=== PATIENT | female | born 1960 | race Caucasian/White ===

== ENCOUNTER → 2016-06-22 | Day surgery (SDC) | payer BC ==
[2016-06-20 10:00] VITALS: BMI 26.5
[~2016-06-22] MED LIST: ACETAMINOPHEN TAB 500 MG TAB PO ONE; DEXAMETHASONE SOD PHOS (MDV) 100 MG/10 ML VIAL ONE; DEXAMETHASONE SOD PHOSPHATE 10 MG/ML 1 ML VIAL IV ONE; DEXAMETHASONE SOD PHOSPHATE 4 MG/ML 1 ML VIAL IV ONE; FAMOTIDINE 20 MG/2 ML VIAL IV ONE; GLYCOPYRROLATE 0.2 MG/ML 2 ML VIAL ONE; HYDROmorphone 1 MG/ML 1 ML SYRINGE IVP PRN; LACTATED RINGERS 1,000 ML IV SCH; LIDOCAINE 1% 20 ML VIAL (10MG/ML) FOR IV START INTRADERMA PRN; LIDOCAINE 1% INJ 10MG/ML (20 ML MDV) ONE; MIDAZOLAM 2 MG/2 ML VIAL IV PRN; MIDAZOLAM 2 MG/2 ML VIAL ONE; ONDANSETRON 4 MG/2 ML VIAL IVP ONE; PROPOFOL 10 MG/ML 20 ML VIAL IV ONE; Pre Op ABX Message 1 EACH MISC MISCELLANE ONE; SCOPOLAMINE 1.5MG/72HR PATCH TRANSDERM ONE; SUCCINYLCHOLINE CHLORIDE 100 MG/5 ML SYR IV ONE; fentaNYL (PF) 50 MCG/ML 2 ML AMP ONE
[2016-06-22 10:41] VITALS: TEMP 97.9
--- NOTE | 2016-06-22 10:48 | P.OP ---
Date of Procedure: 06/22/16 Preoperative Diagnosis: Bilateral vocal cord polyps Postoperative Diagnosis: Same Procedure(s) Performed: Direct microscopic laryngoscopy with removal of bilateral vocal cord polyps Anesthesia: BRIANAA Surgeon: Keven Hernandez Estimated Blood Loss (ml): 0 Pathology: other (Polyps) Condition: stable Disposition: PACU Indications for Procedure: This patient has had persistent hoarseness she suffers from ALLERGIC disease some reflux issues and vocal strain. She's developed vocal cord polyps that have not been amenable to medical therapy therefore surgical removal was requested by the patient. All risks, benefits, and alternative therapies were discussed in detail. Consent was obtained and all questions were answered. Operative Findings: Patient has bilateral vocal cord polyps Description of Procedure: This patient was taken to the operative room and placed in the supine position. A general inhalation anesthetic was administered to the patient by mask and subsequently intubated with a cuffed endotracheal tube by the department of anesthesia with a functioning IV line in place. Patient was monitored throughout the entire case by the department of anesthesia. A Jako laryngoscope was placed into the patient's mouth with care to avoid any trauma to the lips teeth gums or tongue. Tooth guard was placed. The scope was advanced and the entire Lucia and hypopharynx was evaluated including the piriform sinus, aryepiglottic folds, true and false cords, base of tongue vallecula epiglottis etc. After complete and thorough examination was performed , this was placed on suspension on a Lewy and the vocal cords were visualized. With use of a low suction microdebrider utilizing a pill coater blade these polyps were removed bilaterally. Excellent results were obtained hemostasis was spontaneous and the patient was taken to postanesthesia recovery in excellent condition. Follow-up will be in the office in 1 week patient has 7 days of voice rest
[2016-06-22 10:51] VITALS: RESP 16
[2016-06-22 11:00] VITALS: BP 112/61; PULSE 69
== END | disposition home or self-care (01) ==
LOC: OR 08:04
PROVIDERS: ATTEND Otolaryngology
DX: J38.1 Polyp of vocal cord and larynx (principal); J37.0 Chronic laryngitis; I10 Essential (primary) hypertension; Z79.82 Long term (current) use of aspirin; Z79.899 Other long term (current) drug therapy; Z91.011 Allergy to milk products; Z91.018 Allergy to other foods; Z91.09 Other allergy status, other than to drugs and biological substances
CPT/HCPCS: 88305; 31540; J2250; J1100 ×2; J2405; J2001; J3010; J0330; J2704

== ENCOUNTER 2017-09-19 07:38 | Day surgery (SDC) | payer BC ==
[2017-09-11 16:02] VITALS: BMI 25.0
[~2017-09-19 07:38] MED LIST changes: -ACETAMINOPHEN TAB 500 MG TAB PO ONE; -DEXAMETHASONE SOD PHOS (MDV) 100 MG/10 ML VIAL ONE; -DEXAMETHASONE SOD PHOSPHATE 4 MG/ML 1 ML VIAL IV ONE; -FAMOTIDINE 20 MG/2 ML VIAL IV ONE; -GLYCOPYRROLATE 0.2 MG/ML 2 ML VIAL ONE; +HYDROmorphone 0.5 MG/0.5 ML SYRINGE IVP PRN; -HYDROmorphone 1 MG/ML 1 ML SYRINGE IVP PRN; -LACTATED RINGERS 1,000 ML IV SCH; -LIDOCAINE 1% 20 ML VIAL (10MG/ML) FOR IV START INTRADERMA PRN; -LIDOCAINE 1% INJ 10MG/ML (20 ML MDV) ONE; -MIDAZOLAM 2 MG/2 ML VIAL IV PRN; -MIDAZOLAM 2 MG/2 ML VIAL ONE; +MORPHINE SULFATE 4 MG/ML SYRINGE IV PRN; +ONDANSETRON 4 MG/2 ML VIAL IVP PRN; -PROPOFOL 10 MG/ML 20 ML VIAL IV ONE; -Pre Op ABX Message 1 EACH MISC MISCELLANE ONE; -SCOPOLAMINE 1.5MG/72HR PATCH TRANSDERM ONE; -SUCCINYLCHOLINE CHLORIDE 100 MG/5 ML SYR IV ONE; +ceFAZolin IN SWFI 2 GM/20 ML SYRINGE IVP ONE; -fentaNYL (PF) 50 MCG/ML 2 ML AMP ONE
[2017-09-19] MEDS: LACTATED RINGERS 1,000 ML IV SCH (08:23)
[2017-09-19] MEDS ORDERED: LIDOCAINE 1% 20 ML VIAL (10MG/ML) FOR IV START INTRADERMA ONE (08:24)
[2017-09-19] MEDS ORDERED: SCOPOLAMINE 1.5MG/72HR PATCH TRANSDERM ONE (08:24)
[2017-09-19] MEDS ORDERED: MIDAZOLAM 2 MG/2 ML VIAL IVP ONE (09:07)
--- NOTE | 2017-09-19 10:44 | P.GSHP ---
History of Present Illness H&P Date: 09/19/17 Chief Complaint: Left inguinal hernia This a 57-year-old female referred from Dr. Richard Gutierrez. Patient presents today for laparoscopic robotic system repair of left inguinal hernia. Past Medical History Past Medical History: Cancer, Hypertension Additional Past Medical History / Comment(s): CHRONIC BACK PAIN. MICROSCOPIC COLITIS. ENVIRONMENTAL ALLERGIES RECEIVES ALLERGY SHOTS WEEKLY, BASAL CELL CANCER REMOVED FROM FOREHEAD History of Any Multi-Drug Resistant Organisms: None Reported Past Surgical History: Breast Surgery Additional Past Surgical History / Comment(s): BREAST REDUCTION, removal of vocal cord polyps. COLONOSCOPY, BASAL CELL CANCER REMOVED FROM FOREHEAD Past Anesthesia/Blood Transfusion Reactions: Motion Sickness, Postoperative Nausea & Vomiting (PONV) Additional Past Anesthesia/Blood Transfusion Reaction / Comment(s): MOTHER AND BROTHER ponv Smoking Status: Never smoker - Past Family History Mother Family Medical History: Deep Vein Thrombosis (DVT) Father Family Medical History: Cancer Additional Family Medical History / Comment(s): leukemia Sister(s) Additional Family Medical History / Comment(s): of aneurysm Medications and Allergies Home Medications Medication Instructions Recorded Confirmed Type Hrbrjvp-[id number]-[id number] 1 tab PO Q4-6H PRN 11/25/15 09/19/17 History [Excedrin] Bisoprolol-Hctz 2.5-6.25 mg [Ziac 1 tab PO QAM 11/25/15 09/19/17 History 2.5-6.25 MG] Dicyclomine [Bentyl] 20 mg PO DAILY PRN 11/25/15 09/19/17 History Mesalamine [Lialda] 1.2 gm PO QAM 11/25/15 09/19/17 History Multivitamins, Thera [Multivitamin] 1 tab PO DAILY 11/25/15 09/19/17 History traMADol HCL [Ultram] 50 mg PO AC-LUNCH 11/25/15 09/19/17 History Montelukast [Singulair] 10 mg PO HS 06/20/16 09/19/17 History Desloratadine [Clarinex] 5 mg PO DAILY 09/11/17 09/19/17 History [place]-3 Fatty Acids/Fish Oil [Fish 1 each PO DAILY 09/11/17 09/19/17 History Oil 1,000 mg Softgel] Triamcinolone Acetonide [Nasacort] 2 spray EA NOSTRIL HS 09/11/17 09/19/17 History Allergies Allergy/AdvReac Type Severity Reaction Status Date / Time Milk Containing Products Allergy Anaphylaxis Verified 09/11/17 15:46 wheat Allergy Diarrhea Verified 09/11/17 15:46 Surgical - Exam Vital Signs Temp Pulse Resp BP Pulse Ox 97.6 F 73 16 129/77 97 09/19/17 08:12 09/19/17 08:12 09/19/17 08:12 09/19/17 08:12 09/19/17 08:12 - General well developed, well nourished, no distress - Eyes PERRL - ENT normal pinna - Neck no masses - Respiratory normal expansion - Cardiovascular Rhythm: regular - Abdomen Abdomen: soft Hernia: inguinal (Reducible left inguinal hernia) Assessment and Plan Assessment: Left inguinal hernia. We'll perform laparoscopic robotic system repair.
[2017-09-19] MEDS ORDERED: GLYCOPYRROLATE 0.2 MG/ML 2 ML VIAL ONE (10:58)
[2017-09-19] MEDS ORDERED: KETOROLAC 30 MG/ML 1 ML VIAL ONE (10:58)
[2017-09-19] MEDS ORDERED: NEOSTIGMINE 1 MG/ML 10 ML VIAL ONE (10:58)
[2017-09-19] MEDS ORDERED: PROPOFOL 10 MG/ML 20 ML VIAL IV ONE (10:58)
[2017-09-19] MEDS ORDERED: SUCCINYLCHOLINE CHLORIDE 100 MG/5 ML SYR IV ONE (10:58)
[2017-09-19] MEDS ORDERED: ROCURONIUM BROMIDE 10 MG/ML 10 ML VIAL IV ONE (10:58)
[2017-09-19] MEDS ORDERED: PHENYLEPHRINE-0.9% NACL SYG 1 MG/10 ML SYRINGE ONE (10:58)
[2017-09-19] MEDS ORDERED: MORPHINE SULFATE 10 MG/ML SYRINGE ONE (10:58)
[2017-09-19] MEDS ORDERED: ROPIVACAINE 5 MG/ML 30 ML VIAL ONE (10:58)
[2017-09-19] MEDS ORDERED: fentaNYL (PF) 50 MCG/ML 2 ML AMP ONE (10:58)
[2017-09-19] MEDS ORDERED: LIDOCAINE 1% INJ 10MG/ML (20 ML MDV) ONE (10:58)
[2017-09-19] MEDS ORDERED: MIDAZOLAM 2 MG/2 ML VIAL ONE (10:58)
[2017-09-19] MEDS ORDERED: BUPIVACAINE (PF) 0.25% 30 ML VIAL SQ ONE (11:37)
[2017-09-19 12:27] VITALS: TEMP 97.1
--- NOTE | 2017-09-19 12:41 | P.OP ---
Date of Procedure: 09/19/17 Preoperative Diagnosis: Left we will hernia Postoperative Diagnosis: Bilateral hernia Procedure(s) Performed: Laparoscopic robotic-assisted repair of bilateral inguinal hernia Anesthesia: DIONISIO Surgeon: Eulogio Bey Estimated Blood Loss (ml): 5 Pathology: none sent Condition: stable Disposition: PACU Description of Procedure: The patient's placed on the operating table in the supine position. The patient received general anesthesia. The patient's abdomen was prepped and draped in usual sterile fashion. The skin was anesthetized 1% local Xylocaine at the incision sites. Using an 11 blade a skin incision was made at the umbilicus. The fascia was grasped with a Yandel and then the peritoneal cavity was entered with the Veress needle. Position of the Veress needle was confirmed with a positive drop test. After adequate insufflation a 5 mm trocar was placed into the peritoneal cavity. The Laparoscope was placed the peritoneal cavity. And a robotic 8 mm trocar was placed in the right lateral position and then another 8 mm robotic trochars placed in the left lateral position. The original 5 mm trocar was exchanged for a 12 mm trocar. The patient was placed in reverse Trendelenburg and then the patient was docked to the robot. Next the peritoneum over top of the right inguinal hernia was incised and then using blunt and sharp dissection and electrocautery the hernia sac was dissected free from the floor of the inguinal canal in the round ligament. The hernia sac was completely reduced into the peritoneal cavity. And then using the Pro curtain drier mesh the hernia was repaired. The peritoneum was then sutured with 20V lock suture. Next the peritoneum over top of the left inguinal hernia was incised and then using blunt and sharp dissection and electrocautery the hernia sac was dissected free from the floor of the inguinal canal in the round ligament. The hernia sac was completely reduced into the peritoneal cavity. And then using the Pro curtain drier mesh the hernia was repaired. The peritoneum was then sutured with 20V lock suture. The patient was then undocked the robot. The needle was withdrawn from the peritoneal cavity. The umbilical trocar site was closed with 0 Ethibond suture. The skin was closed interrupted 3-0 Monocryl suture. Dermabond dressing was applied. Patient was sent to recovery in stable condition.
[2017-09-19] MEDS: MEPERIDINE 50 MG/ML SYRINGE IVP ONE ×2 (12:58→13:14)
[2017-09-19 14:25] VITALS: BP 99/53; PULSE 76; RESP 18
--- NOTE | 2017-09-19 14:27 | P.ONQ ---
Anesthesiology Proc Note - PNB - Peripheral Nerve Block Performed Transversus Abdominis Single Time Out Performed: Yes Procedure Start Time: :02 Procedure Stop Time: 09:16 Indication: Acute Post-Operative Pain, Requested by physician Sedation Type: Sedate with meaningful contact maintained Preparation: Sterile Prep Position: Supine Needle Size: 50mm (2") Needle Gauge: 21 Technique: Ultrasound Injectate: 0.5% Ropivacaine (see comment for volume) (ropi .5% 15 cc each side for b/l tap block) Blood Aspirated: No Pain Paresthesia on Injection Noted: No Resistance on Injection: Normal Events: Uneventful and Well Tolerated
== END 2017-09-19 14:53 | disposition home or self-care (01) ==
LOC: OR 07:38
PROVIDERS: ATTEND Surgery
DX: K40.20 Bilateral inguinal hernia, without obstruction or gangrene, not specified as recurrent (principal); I10 Essential (primary) hypertension; M54.9 Dorsalgia, unspecified; G89.29 Other chronic pain; K52.839 Microscopic colitis, unspecified; Z85.828 Personal history of other malignant neoplasm of skin; Z79.82 Long term (current) use of aspirin; Z79.891 Long term (current) use of opiate analgesic; Z79.51 Long term (current) use of inhaled steroids; Z79.899 Other long term (current) drug therapy; Z91.011 Allergy to milk products; Z91.018 Allergy to other foods
CPT/HCPCS: 49650; C1781; J2250; J2270 ×2; J1100; J2710; J2175; J2001; J3010; J1885; J2795; J2370; J0330; J2704; J0690

== ENCOUNTER 2019-08-04 10:27 | Emergency (ER) | payer BC ==
[2019-08-04 10:51] VITALS: RESP 18; TEMP 97.8
[2019-08-04] MEDS ORDERED: OXYMETAZOLINE 0.05% NASL SPRAY 1 SPRAY BOTTLE NASAL STA (11:00)
--- NOTE | 2019-08-04 11:52 | ED ---
ENT HPI - General Chief complaint: ENT Stated complaint: epistaxis Time Seen by Provider: 08/04/19 10:52 Source: patient, RN notes reviewed Mode of arrival: ambulatory Limitations: no limitations - History of Present Illness Initial comments: 59-year-old female sent emergency Department chief complaint of nosebleed. Patient states she had some on-and-off bleeding but states in last 45 minutes been persistent out of her right nostril. She states she was coughing up some blood. Patient states that she does use a wood stove burner but she has a humid ifier. Patient denies any fevers chills no trauma denies any issues with nosebleeds in the past. Patient states she did not take her blood pressure medication this morning because she was going for ALLERGY injections. Patient currently seeing an ENT. Patient offers no other complaints. - Related Data Home Medications Medication Instructions Recorded Confirmed Eoofdsi-Zbop-Wxpu [id number] 1 tab PO Q4-6H PRN 11/25/15 09/19/17 [Excedrin] Bisoprolol-Hctz 2.5-6.25 mg [Ziac 1 tab PO QAM 11/25/15 09/19/17 2.5-6.25 MG] Dicyclomine [Bentyl] 20 mg PO DAILY PRN 11/25/15 09/19/17 Mesalamine [Lialda] 1.2 gm PO QAM 11/25/15 09/19/17 Multivitamins, Thera [Multivitamin] 1 tab PO DAILY 11/25/15 09/19/17 traMADol HCL [Ultram] 50 mg PO AC-LUNCH 11/25/15 09/19/17 Montelukast [Singulair] 10 mg PO HS 06/20/16 09/19/17 Desloratadine [Clarinex] 5 mg PO DAILY 09/11/17 09/19/17 [place]-3 Fatty Acids/Fish Oil [Fish 1 each PO DAILY 09/11/17 09/19/17 Oil 1,000 mg Softgel] Triamcinolone Acetonide [Nasacort] 2 spray EA NOSTRIL HS 09/11/17 09/19/17 Previous Rx's Medication Instructions Recorded Docusate [Colace] 100 mg PO BID #20 capsule 09/19/17 HYDROcodone/APAP 7.5-325MG [[place] 1 each PO Q4H PRN #30 tab 09/19/17 7.5] Allergies Allergy/AdvReac Type Severity Reaction Status Date / Time Milk Containing Products Allergy Anaphylaxis Verified 08/04/19 10:48 wheat Allergy Diarrhea Verified 08/04/19 10:48 Review of Systems ROS Statement: Those systems with pertinent positive or pertinent negative responses have been documented in the HPI. ROS Other: All systems not noted in ROS Statement are negative. Past Medical History Past Medical History: Hypertension Additional Past Medical History / Comment(s): POLYPS ON VOCAL CORD, CHRONIC BACK PAIN. MICROCOLITIS. ENVIRONMENTAL ALLERGIES History of Any Multi-Drug Resistant Organisms: None Reported Past Surgical History: Breast Surgery Additional Past Surgical History / Comment(s): BREAST REDUCTION. COLONOSCOPY Past Anesthesia/Blood Transfusion Reactions: Motion Sickness, Postoperative Nausea & Vomiting (PONV) Past Psychological History: No Psychological Hx Reported Smoking Status: Never smoker Past Alcohol Use History: None Reported Past Drug Use History: None Reported - Past Family History Mother Family Medical History: Deep Vein Thrombosis (DVT) Father Family Medical History: Cancer General Exam Limitations: no limitations General appearance: alert, in no apparent distress Head exam: Present: atraumatic, normocephalic, normal inspection Eye exam: Present: normal appearance, PERRL, EOMI. Absent: scleral icterus, conjunctival injection, periorbital swelling ENT exam: Present: normal oropharynx, mucous membranes moist, TM's normal bi laterally, normal external ear exam, other (old blood right nare). Absent: normal exam Neck exam: Present: normal inspection. Absent: tenderness, meningismus, lymphadenopathy Respiratory exam: Present: normal lung sounds bilaterally. Absent: respiratory distress, wheezes, rales, rhonchi, stridor Cardiovascular Exam: Present: regular rate, normal rhythm, normal heart sounds. Absent: systolic murmur, diastolic murmur, rubs, gallop, clicks Course Vital Signs 08/04/19 08/04/19 10:49 11:55 Temperature 97.8 F Pulse Rate 87 79 Respiratory 18 18 Rate Blood Pressure 154/90 148/89 O2 Sat by Pulse 98 99 Oximetry Medical Decision Making - Medical Decision Making 59-year-old presented for epistaxis. Patient nose was sprayed with Afrin, clamp no rebleeding. Patient took her blood pressure medication in emergency department blood pressure slowly improving. Patient will be discharged in stable condition she'll follow-up with her ENT Dr. Hernandez return parameters were discussed. Disposition Clinical Impression: Epistaxis Disposition: HOME SELF-CARE Condition: Stable Instructions (If sedation given, give patient instructions): Nosebleed (ED) Additional Instructions: Please return to the Emergency Department if symptoms worsen or any other co ncerns. Is patient prescribed a controlled substance at d/c from ED?: No Referrals: Richard Hebert DO [Primary Care Provider] - 1-2 days Time of Disposition: 12:06
[2019-08-04 11:55] VITALS: BP 148/89; PULSE 79
== END 2019-08-04 12:18 | disposition home or self-care (01) ==
LOC: EC 10:27
DX: R04.0 Epistaxis (principal); R04.2 Hemoptysis; I10 Essential (primary) hypertension; G89.29 Other chronic pain; Z91.011 Allergy to milk products; Z91.018 Allergy to other foods; Z79.891 Long term (current) use of opiate analgesic; Z79.899 Other long term (current) drug therapy; Z87.19 Personal history of other diseases of the digestive system
CPT/HCPCS: 30901; 99283

== ENCOUNTER → 2019-08-08 | Outpatient (CLI) | payer BC ==
--- NOTE | 2019-08-08 15:17 | XR ---
Nasal bone and facial bones HISTORY: Trauma, contusion 3 views of the nasal bones, 3 views of the facial bones submitted The orbits are intact. Paranasal sinuses are well aerated. There is a lucency at the tip of the nasal bone which could possibly represent a small minimally displaced fracture. Bone mineralization otherw ise maintained. IMPRESSION: Correlate for point tenderness, suspect minimally displaced distal nasal bone fracture.
== END | disposition home or self-care (01) ==
LOC: RADXRMAIN 14:31
PROVIDERS: ATTEND Family Medicine
DX: S09.93XA Unspecified injury of face, initial encounter (principal); S09.92XA Unspecified injury of nose, initial encounter
CPT/HCPCS: 70150; 70160

== ENCOUNTER → 2022-06-28 | Outpatient (CLI) | payer BC ==
--- NOTE | 2022-06-28 11:28 | XR ---
EXAMINATION TYPE: XR chest 2V DATE OF EXAM: 06/28/2022 COMPARISON: NONE TECHNIQUE: PA and lateral views submitted. HISTORY: Fever FINDINGS: The lungs are clear and there is no pneumothorax, pleural effusion, or focal pneumonia. Heart size normal and no overt failure. Osseous structures demonstrate hypertrophic and degenerative changes of the spine. Hyperinflation. Calcified tiny granuloma suspected on the lateral view. Arthropathy of the shoulders. IMPRESSION: 1. No acute process. Correlate for COPD.
== END | disposition home or self-care (01) ==
LOC: RADXRMAIN 10:54
PROVIDERS: ATTEND Family Medicine
DX: J44.9 Chronic obstructive pulmonary disease, unspecified (principal); R50.9 Fever, unspecified
CPT/HCPCS: 71046

== ENCOUNTER → 2023-12-04 | Outpatient (CLI) | payer BC ==
[2023-12-05 04:28] LABS: Alternaria alternata IgE <0.10 kU/L; Aspergillus fumagatus IgE <0.10 kU/L; Birch IgE <0.10 kU/L; Cat Epith & Dander IgE <0.10 kU/L; Cladosporian herbarum IgE <0.10 kU/L; Cockroach IgE <0.10 kU/L; Dermato. farinae IgE <0.10 kU/L; Dog Dander IgE <0.10 kU/L; Elm IgE <0.10 kU/L; Maple (Box Elder) IgE 0.42 kU/L; Oak IgE 0.55 kU/L; Ragweed,Common IgE 0.12 kU/L; Red Top (Bentgrass) IgE 0.87 kU/L
== END | disposition home or self-care (01) ==
LOC: LABWHC1 16:06
PROVIDERS: ATTEND Otolaryngology
DX: J30.89 Other allergic rhinitis (principal); B44.89 Other forms of aspergillosis; L50.0 Allergic urticaria
CPT/HCPCS: 36415; 82785; 86003

== ENCOUNTER → 2024-12-17 | Outpatient (CLI) | payer BC ==
--- NOTE | 2024-12-22 09:05 | MR ---
EXAMINATION TYPE: MR knee LT wo con DATE OF EXAM: 12/17/2024 11:23 AM COMPARISON: No radiographic correlation available CLINICAL INDICATION: Female, 64 years old with history of M25.462 l knee effusion, Left knee pain x 1 month, no trauma. TECHNIQUE: Multiplanar, multisequence imaging of the left knee is performed without IV contrast. FINDINGS: There is abnormal signal along the ACL. While minimal strandy fibers may remain, there is anterior ti bial translation of 1.1 cm and positive PCL line sign. The PCL appears intact. MCL appears intact. Abnormal signal at the femoral attachment of the LCL proper. LCL complex otherwise appears intact. There is a posterior root tear of the medial meniscus with mild extrusion of the meniscal body. Addit ional oblique undersurface tear involving the posterior horn and extending into the body of the menis cus. Focal 1.8 x 1.8 cm subchondral impaction injury involving the mid weightbearing aspect of the medial tibial plateau without any abnormal bony depression. Overall cartilage volume appears to be maintaine d. Lateral meniscus appears intact. Overall lateral compartment articular cartilage volume is maintained . The patellofemoral compartment articular cartilage is maintained. There is a tiny deep sided, partial thickness tear at the medial quadriceps insertion measuring 7 x 7 mm. Extensor mechanism otherwise intact. Referred to axial image 31 and sagittal image 18. Small knee joint effusion. Focal fluid along the medial aspect of the distal femoral metaphysis measu ring 3.7 x 1.1 cm partially surrounds the insertional tendon of the abdomen after Magnevist and exten ds into the medial margin of the gastrocnemius origin. Trace leaking Maxwell's cyst. Mild muscle edema along the gastrocnemius could be reactive to altered bi omechanics or could represent a mild muscle strain. Normal popliteal artery anatomy. Mild generalized muscle atrophy. IMPRESSION: 1. While minimal strandy ACL fibers may remain, the presence of anterior tibial translation and PCL l ine sign suggests ACL rupture and instability. 2. Grade 2 sprain at the femoral attachment of the LCL proper. 3. Posterior root tear medial meniscus with mild extrusion of the meniscal body. Additional oblique t ear extends through the posterior horn and body. 4. Associated 1.8 x 1.8 cm subchondral impaction injury involving the mid weightbearing aspect of the medial tibial plateau. No abnormal bone depression or discrete chondral injury is seen. 5. Tiny deep sided tear involving the medial quadriceps insertion measuring 7 x 7 mm. 6. Small 3.7 x 1.1 cm fluid/ganglion or hematoma along the medial aspect of the distal femoral metaph ysis may reflect a partial tear at the medial head gastrocnemius origin. The fluid partially surround s the adductor cody insertion though the tendon appears intact. [facility], Workstation: [facility], 12/22/2024 9:02 AM
== END | disposition home or self-care (01) ==
LOC: RADMRIMAIN 10:46
PROVIDERS: ATTEND Orthopaedic Surgery
DX: S83.242A Other tear of medial meniscus, current injury, left knee, initial encounter (principal); S83.422A Sprain of lateral collateral ligament of left knee, initial encounter; M17.12 Unilateral primary osteoarthritis, left knee; M67.462 Ganglion, left knee; X58.XXXA Exposure to other specified factors, initial encounter